=== PATIENT | female | born 1970 | race African-American/Black ===

== ENCOUNTER 2018-02-22 07:21 | Emergency (ER) | payer OTHER, MEDICAID ==
[~2018-02-22] VITALS: Ht 165.1 cm; Wt 62.3 kg
[2018-02-22] MEDS ORDERED: METH5TAB4 PO (07:29)
[2018-02-22] MEDS ORDERED: VENL-53 PO (07:29)
[2018-02-22] MEDS ORDERED: KETOROLAC TROMETHAMINE 60 MG/2 ML VIAL IM ONE (08:30)
[2018-02-22 09:15] VITALS: BP 116/76
== END 2018-02-22 09:56 | disposition home or self-care (01) ==
LOC: EMS 07:22
DX: S29.012A Strain of muscle and tendon of back wall of thorax, initial encounter (principal); V49.50XA Passenger injured in collision with unspecified motor vehicles in traffic accident, initial encounter; Y93.89 Activity, other specified; Y92.89 Other specified places as the place of occurrence of the external cause; Y99.8 Other external cause status
CPT/HCPCS: 71046; 96372; 99284; J1885